=== PATIENT | female | born 1980 | race Caucasian/White ===

== ENCOUNTER → 2017-03-08 | Outpatient (CLI) | payer BC ==
[~2017-03-08] MED LIST: ACYC400T PO; ESCI20TA30 PO; FERR325C PO; GADOBUTROL 10mMol/10ml INJECTION IV ONE; OMEP40CA52 PO; RANI150T7 PO; SALINE FLUSH 10ml SYRINGE ONE
--- NOTE | 2017-03-08 12:02 | DI ---
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 Contrast: 10 mL of Gadavist FINDINGS: The globes appear stable from the prior study and intact. Lenses are located. The extraocular muscles appear normal in thickness and symmetric. There is symmetric enhancement of the extraocular muscles bilaterally. No enhancing intraconal or intraocular mass lesion. There is no evidence of abnormal enlargement of the superior ophthalmic arteries or veins. No mass seen in the region of the optic high as MR or orbital fissures. No inflammatory changes or enhancement noted within the ocular fat. The visualized portions of the brain parenchyma appear grossly normal and unchanged. The optic nerves do not show any definite abnormal enhancement. Impression: Unremarkable exam. No evidence of intraorbital or intraocular mass. .
== END ==
LOC: IMA 09:14
PROVIDERS: ATTEND Ophthalmology
DX: H05.20 Unspecified exophthalmos (principal); H31.8 Other specified disorders of choroid